=== PATIENT | female | born 1960 | race Caucasian/White ===

== ENCOUNTER → 2017-07-08 10:18 | Outpatient (CLI) | payer OTHER, SELFPAY ==
--- NOTE | 2017-07-08 10:29 | XR_ITS ---
XR ankle LT min 3V HISTORY: Left ankle pain ITS.REASON: LEFT ANKLE SPRAIN,INJURY ORDERING PHYSICIAN: Marie Durham PATIENT AGE: 57 years COMPARISON: FINDINGS: No fracture or dislocation. There is an area of cortical thinning involving the lateral aspect of the distal shaft of the tibia which shows decreased attenuation on the oblique view. This has the appearance of the lytic lesion. This could also be related to artifact from sparse trabeculation in this region. Suggest CT scan of this area to further evaluate. IMPRESSION: 1. No acute fracture. 2. Possible lytic lesion of the distal shaft of the tibia. Recommend CT scan for further evaluation
== END ==
PROVIDERS: PCP Nurse Practitioner Family; Visit Provider Nurse Practitioner Family
DX: S93.402A Sprain of unspecified ligament of left ankle, initial encounter (principal); S99.912A Unspecified injury of left ankle, initial encounter
CPT/HCPCS: 73610

== ENCOUNTER → 2017-07-25 13:53 | Outpatient (CLI) | payer OTHER, SELFPAY ==
--- NOTE | 2017-07-25 14:00 | CT_ITS ---
CT ankle LT wo con INDICATION: ITS.REASON: LYTIC LESION DISTAL TIBIA ORDERING PHYSICIAN: Marie Durham PATIENT AGE: 57 years COMPARISON: 07/08/2017 TECHNIQUE: Axial images are obtained without contrast. Sagittal and coronal reformatted images are reviewed as well. All CT scans at the facility use one or more dose reduction, viz: automated exposure control; ma/kV adjustment per patient size (including targeted exams where dose is matched to indication; i.e. head); or iterative reconstruction technique. FINDINGS: There is a well corticated deformity of the distal tibia diaphysis with broad-based concavity posteriorly. There is some cortical thinning posteriorly with some mild prominence of the trabecular bone posteriorly and laterally. No obvious associated soft tissue abnormality. This concavity simulates a destructive lesion by x-ray. IMPRESSION: Concave deformity of the distal tibia posteriorly with some cortical thinning and prominence of trabecular bone. This may be the result of an old fracture. No aggressive bony lytic lesion evident. 3 month radiographic follow-up recommended.
== END ==
PROVIDERS: Family Provider Nurse Practitioner Family; PCP Nurse Practitioner Family; Visit Provider Nurse Practitioner Family
DX: R93.6 Abnormal findings on diagnostic imaging of limbs (principal)
CPT/HCPCS: 73700

== ENCOUNTER → 2018-09-19 14:55 | Outpatient (CLI) | payer OTHER, SELFPAY ==
--- NOTE | 2018-09-19 15:16 | US_ITS ---
US thyroid HISTORY: ITS.REASON: THYROID NODULE ORDERING PHYSICIAN: Marie Durham APRN PATIENT AGE: 58 years Comparison: None FINDINGS: The right lobe is 3.7 x 1.5 x 2.7 cm. There is homogeneous echogenicity. A 1 cm cyst is present in the mid polar region of the right lobe. There is some minimal irregularity of the cyst wall. The left lobe is 3.2 x 1.1 x 1.5 cm. An isoechoic nodule present in the upper pole at 6 mm. In the mid polar region there is a 6 mm isoechoic nodule IMPRESSION: Bilateral thyroid nodules which appear benign. 6 month follow-up may confirm stability
== END ==
PROVIDERS: PCP Family Medicine; Visit Provider Nurse Practitioner Family
DX: E04.1 Nontoxic single thyroid nodule (principal)
CPT/HCPCS: 76536

== ENCOUNTER → 2019-04-03 11:28 | Outpatient (CLI) | payer OTHER, SELFPAY ==
--- NOTE | 2019-04-03 11:42 | XR_ITS ---
PROCEDURE: XR CERVICAL SPINE 5V CLINICAL INDICATION: CERVICALGIA COMPARISON: [facility] CT CERVICAL SPINE W/O CONT from 05/03/2015 FINDINGS: There is severe upper thoracic/lower cervical scoliosis convex right. Severe kyphosis also noted in the upper and lower cervical thoracic. This has been described on previous exams.. No obvious acute fracture or dislocation. Yoo rods remain in place in the upper thoracic spine and lower cervical spine. It is difficult to adequately evaluate the lower cervical spine. The upper cervical spine has an unremarkable appearance. IMPRESSION: Severe thoracocervical scoliosis and kyphosis with prior surgery. No definite acute fracture or other acute anomaly Dictated by: Macario Rodgers MD 04/03/2019 12:56 Electronically signed by Macario Rodgers MD in [place] 04/03/2019 12:56
== END ==
PROVIDERS: PCP Family Medicine; Visit Provider Nurse Practitioner Family
DX: M54.2 Cervicalgia (principal)
CPT/HCPCS: 72050

== ENCOUNTER → 2019-12-28 14:57 | Outpatient (CLI) | payer OTHER, SELFPAY ==
--- NOTE | 2019-12-28 15:01 | XR_ITS ---
PROCEDURE: XR KUB CLINICAL INDICATION: RT FLANK PAIN COMPARISON: CR KUB KUB (SINGLE VIEW) from 04/19/2015 FINDINGS: Bowel gas pattern is nonspecific. No evidence of intestinal obstruction. There is a faint calcific density in the mid pelvic region on the right at 1-2 mm and could represent a ureteral calculus or a vascular calcification. Faint left upper quadrant calcification noted and may be vascular. No acute bony findings. Sutures are present in the lower pelvic region. IMPRESSION: 2 mm right pelvic calcification which could be due to ureteral stone or a phleboliths. Dictated by: Macario Rodgers MD 12/28/2019 15:43 Macario Rodgers MD in [place] 12/28/2019 15:43
== END ==
PROVIDERS: PCP Nurse Practitioner Family; Visit Provider Nurse Practitioner Family
DX: R10.9 Unspecified abdominal pain (principal)
CPT/HCPCS: 74018

== ENCOUNTER → 2020-03-01 12:04 | Outpatient (CLI) | payer OTHER, SELFPAY ==
[2020-03-02 10:15] LABS: Covid-19 Nasal PCR Sendout P&C Negative
== END ==
PROVIDERS: PCP Family Medicine; Visit Provider Family Medicine
DX: Z03.818 Encounter for observation for suspected exposure to other biological agents ruled out (principal)
CPT/HCPCS: U0004

== ENCOUNTER → 2020-05-10 09:24 | Outpatient (CLI) | payer OTHER, SELFPAY ==
--- NOTE | 2020-05-10 09:32 | XR_ITS ---
PROCEDURE: XR SHOULDER RT MIN 2V CLINICAL INDICATION: ACUTE PAIN OF RT SHOULDER COMPARISON: CT TSPWO CT THORACIC SPINE W/O CONTRAST from 05/03/2015 FINDINGS: The clavicle is intact. There is mild narrowing of AC joint. The humeral head and glenoid appear normal. There is no subacromial stenosis. There are no soft tissue calcifications. A rather acute scoliotic angulation of the upper thoracic spine is again noted stabilized by fixation rods and brackets. IMPRESSION: No acute findings. Dictated by: Dr. Dexter Otero MD 05/10/2020 10:55 Dr. Dexter Otero MD in [place] 05/10/2020 10:55
== END ==
PROVIDERS: PCP Nurse Practitioner Family; Visit Provider Nurse Practitioner Family
DX: M25.511 Pain in right shoulder (principal)
CPT/HCPCS: 73030

== ENCOUNTER → 2020-07-12 09:43 | Outpatient (CLI) | payer OTHER, SELFPAY ==
--- NOTE | 2020-07-12 09:48 | XR_ITS ---
PROCEDURE: XR MULTIPLE SPINE 6+V CLINICAL INDICATION: LOW BACK PAIN,CERVICALGIA COMPARISON: No exams were available for comparison FINDINGS: Cervical spine: Severe kyphoscoliosis of visualized cervical and thoracic spine limits evaluation. Posterior spinal fixation rods of the upper thoracic spine is noted. The visualized cervical spine demonstrates normal alignment within the limitations of the study. Exaggeration of the cervical spine curvature. Multilevel facet joint arthropathy is noted. The C1-2 alignment is unremarkable. Soft tissue density is noted in the right lung apex, demonstrates no significant interval change compared to the CT of the thoracic spine dated May 03, 2015. Thoracolumbar spine: Posterior spinal fixation rods of the upper thoracic vertebral bodies. The visualized lumbar spine demonstrates no evidence of acute fractures or listhesis. Bone density is normal. Minor lower lumbar facet joint arthropathy. Paravertebral soft tissues are unremarkable. IMPRESSION: Severe kyphoscoliosis and posterior spinal fixation rods of the upper thoracic vertebral bodies. No other acute abnormality within the limitations of the study. Dictated by: Cheyenne Redd 07/12/2020 12:04 Cheyenne Redd in [place] 07/12/2020 12:04
--- NOTE | 2020-07-12 09:48 | XR_ITS ---
PROCEDURE: XR HIP RT 2-3V W/PELVIS CLINICAL INDICATION: FALL, RT HIP PAIN COMPARISON: No exams were available for comparison FINDINGS: No acute fractures or dislocations. Bone density is normal. Minor subchondral sclerosis of the right hip joint. No significant soft tissue abnormality is noted. IMPRESSION: No acute findings. Dictated by: Cheyenne Redd 07/12/2020 12:01 Cheyenne Redd in [place] 07/12/2020 12:01
--- NOTE | 2020-07-12 09:48 | XR_ITS ---
PROCEDURE: XR SHOULDER RT MIN 2V CLINICAL INDICATION: FALL,RT SHOULDER PAIN COMPARISON: CT CSWO CT CERVICAL SPINE W/O CONT from 05/03/2015 CR XR SHOULDER RT MIN 2V from 05/10/2020 FINDINGS: No acute fractures or dislocations. Bone density is normal. The acromioclavicular joint is within normal limits. No periarticular calcifications. No significant soft tissue abnormality. Miguelangel and screw fixation of the severely scoliotic upper thoracic spine. The visualized right hemithorax demonstrates minor soft tissue density at the right lung apex, demonstrate no significant interval change compared to prior CT scan of the cervical spine dated May 03, 2015. IMPRESSION: No acute abnormality. Dictated by: Cheyenne Redd 07/12/2020 11:42 Cheyenne Redd in [place] 07/12/2020 11:42
== END ==
PROVIDERS: PCP Nurse Practitioner Family; Visit Provider Nurse Practitioner Family
DX: M54.2 Cervicalgia (principal); M54.41 Lumbago with sciatica, right side; M25.511 Pain in right shoulder
CPT/HCPCS: 72084; 73030; 73502

== ENCOUNTER → 2020-07-21 10:39 | Outpatient (CLI) | payer OTHER, SELFPAY ==
--- NOTE | 2020-07-21 10:42 | MR_ITS ---
PROCEDURE INFORMATION: Exam: MR Right Lower Extremity Joint Without Contrast; Hip Exam date and time: 07/21/2020 10:42 AM Age: 60 years old Clinical indication: Pain; Hip; Right; Additional info: Injury due to fall. PT fell x2wks ago out of suv. RT hip pain and lt butt cheek pain. Hip pain when walking. Pain worse when laying or when sitting. Prior x-ray 07-12-20 TECHNIQUE: Imaging protocol: MR of the Right lower extremity joint without contrast. Exam focused on the hip. COMPARISON: CR XR HIP RT 2-3V W/PELVIS 07/12/2020 10:13 AM FINDINGS: Bones and cartilage: Right sacral insufficiency fracture. No osteonecrosis, other acute or healing fracture or other remarkable marrow signal alteration. Joint spaces: No significant hip joint effusion. Labrum: Unremarkable. No tear. TENDONS: Tendons of iliopsoas group: Unremarkable. No evidence of tear. Tendons of medial compartment of thigh: Unremarkable. No evidence of tear. Tendons of lateral rotators of hip: Unremarkable. No evidence of tear. Tendons of gluteal group: Unremarkable. No evidence of tear. Muscles: Muscles are normal. Soft tissues: Tendons are intact. Lymph nodes: No adenopathy. Intraperitoneal space: No free fluid in the pelvis. Other findings: No hemorrhage or hematoma. Neurovascular structures are unremarkable. IMPRESSION: Right sacral insufficiency fracture.
== END ==
PROVIDERS: PCP Nurse Practitioner Family; Visit Provider Nurse Practitioner Family
DX: M25.551 Pain in right hip (principal); M25.351 Other instability, right hip; W19.XXXA Unspecified fall, initial encounter
CPT/HCPCS: 73721

== ENCOUNTER → 2021-05-29 11:20 | Outpatient (CLI) | payer OTHER, SELFPAY | PROVIDERS: PCP Nurse Practitioner Family; Visit Provider Nurse Practitioner Family | DX: R00.0 Tachycardia, unspecified (principal) | CPT/HCPCS: 93225; 93226; 93270 ==

== ENCOUNTER → 2021-07-11 16:11 | Outpatient (CLI) | payer OTHER, SELFPAY ==
--- NOTE | 2021-07-11 16:17 | XR_ITS ---
PROCEDURE INFORMATION: Exam: XR Chest Exam date and time: 07/11/2021 4:23 PM Age: 61 years old Clinical indication: Cough and shortness of breath; Additional info: SOB TECHNIQUE: Imaging protocol: XR of the chest. Views: 2 views. COMPARISON: CR XR MULTIPLE SPINE 6+V 07/12/2020 10:13 AM FINDINGS: Lungs: There is a prominent right apical opacity. This is in a region where pleural thickening/fibrosis is common; however, findings are more prominent than are typically seen and appear significantly asymmetrically more prominent on the right. This appears stable since CT 07/12/2020, which favors benignity. Nevertheless, if CT of this lesion has never been performed, recommend follow-up nonemergent CT. Pleural spaces: No pneumothorax. Otherwise, as above. Heart/Mediastinum: Unremarkable. No cardiomegaly. Bones/joints: Cervicothoracic kyphoscoliosis with Yoo rods. Moderate spondylosis. IMPRESSION: There is a prominent right apical opacity. This is in a region where pleural thickening/fibrosis is common; however, findings are more prominent than are typically seen and appear significantly asymmetrically more prominent on the right. This appears stable since CT 07/12/2020, which favors benignity. Nevertheless, if CT of this lesion has never been performed, recommend follow-up nonemergent CT.
== END ==
PROVIDERS: PCP Nurse Practitioner Family; Visit Provider Nurse Practitioner Family
DX: R06.02 Shortness of breath (principal); R05.1 Acute cough
CPT/HCPCS: 71046; C9803; U0003; U0005

== ENCOUNTER → 2021-07-25 06:59 | Outpatient (CLI) | payer OTHER, SELFPAY ==
--- NOTE | 2021-07-25 07:06 | CT_ITS ---
FINAL REPORT TECHNIQUE: Thin section axial images were obtained from the lung apices through the upper abdomen without contrast. This study was performed with techniques to keep radiation doses as low as reasonably achievable (ALARA). Individualized dose reduction techniques using automated exposure control or adjustment of mA and/or kV according to the patient's size were employed. CLINICAL HISTORY: ABN CXR COMPARISON: 07/11/2021 FINDINGS: There is no mediastinal, hilar, or axillary lymphadenopathy. There is no pleural or pericardial effusion. Several less than 5 mm left lower lobe pulmonary nodules well seen on images 53 and 54, favor postinflammatory . There is a rounded soft tissue opacity in the right apex measuring 3 cm best seen on image 12. There is a subpleural right upper lobe nodule measuring 5 mm well seen on image 18. There is a 2nd, 6 mm right upper lobe nodule more medially also seen on image 18. Limited, unenhanced evaluation of the upper abdomen is without acute abnormality. There are spinal rods with severe scoliosis in the upper thoracic spine. IMPRESSION: Right apical mass. PET-CT is recommended. Bilateral subcentimeter pulmonary nodules, could be postinflammatory. Recommend short-term follow-up CT. Reviewed, Interpreted and Dictated by Lori Samuel MD Transcribed by Tierney Nava Authenticated by Lori Samuel MD on 07/25/2021 08:32:34 AM [facility]
== END ==
PROVIDERS: PCP Nurse Practitioner Family; Visit Provider Nurse Practitioner Family
DX: R93.89 Abnormal findings on diagnostic imaging of other specified body structures (principal)
CPT/HCPCS: 71250

== ENCOUNTER → 2022-04-05 15:58 | Outpatient (CLI) | payer OTHER, MEDICARE, SELFPAY ==
--- NOTE | 2022-04-05 16:07 | XR_ITS ---
PROCEDURE INFORMATION: Exam: XR Sacrum and Coccyx, 2 or More Views Exam date and time: 04/05/2022 4:19 PM Age: 62 years old Clinical indication: Injury or trauma; Fall; Blunt trauma (contusions or hematomas); Additional info: Injury due to fall 2 weeks ago in bath tub TECHNIQUE: Imaging protocol: XR of the sacrum and coccyx, 2 or more views. COMPARISON: 1. MR HIP RT WO CON 07/21/2020 10:56 AM 2. CR LS5 LUMBAR SPINE 5 VIEWS 04/12/2015 2:06 PM FINDINGS: Bones/joints: Sacrum is partially obscured by bowel gas on AP view. No acute fracture identified. Irregularity at the distal sacrum/coccyx is unchanged from prior. Bilateral hip joints are intact. Soft tissues: Normal. IMPRESSION: No acute abnormality. If continued clinical concern for acute abnormality, MR or CT could be obtained.
--- NOTE | 2022-04-05 16:07 | XR_ITS ---
PROCEDURE INFORMATION: Exam: XR Bilateral Sacroiliac Joints Exam date and time: 04/05/2022 4:19 PM Age: 62 years old Clinical indication: Injury or trauma; Fall; Blunt trauma (contusions or hematomas); Additional info: Injury due to fall 2 weeks ago in bath tub. TECHNIQUE: Imaging protocol: XR Bilateral XR of the sacroiliac joints. Views: 3 or more views. COMPARISON: 1. MR HIP RT WO CON 07/21/2020 10:56 AM 2. CR XR HIP RT 2-3V W/PELVIS 07/12/2020 10:13 AM FINDINGS: Bones/joints: No acute fracture identified. Bilateral hip joints are intact. Soft tissues: Normal. IMPRESSION: No acute abnormality.
--- NOTE | 2022-04-05 16:07 | XR_ITS ---
PROCEDURE INFORMATION: Exam: XR Lumbosacral Spine Exam date and time: 04/05/2022 4:19 PM Age: 62 years old Clinical indication: Injury or trauma; Fall; Blunt trauma (contusions or hematomas); Additional info: Injury due to fall in bath tub 2 weeks ago. TECHNIQUE: Imaging protocol: Radiologic exam of the lumbosacral spine. Views: 4 or 5 views. COMPARISON: CR XR MULTIPLE SPINE 6+V 07/12/2020 10:13 AM FINDINGS: Bones/joints: No acute fracture identified. Lower thoracic and lumbar vertebral body heights and alignment are maintained. Mild multilevel degenerative changes. Thoracic spinal rods are partially imaged. Soft tissues: Unremarkable. IMPRESSION: No acute abnormality.
== END ==
PROVIDERS: PCP Nurse Practitioner Family; Visit Provider Nurse Practitioner Family
DX: M54.50 Low back pain, unspecified (principal); M53.3 Sacrococcygeal disorders, not elsewhere classified; W19.XXXA Unspecified fall, initial encounter
CPT/HCPCS: 72110; 72202; 72220

== ENCOUNTER → 2022-08-07 09:54 | Outpatient (CLI) | payer OTHER, MEDICARE, SELFPAY ==
[2022-08-07 11:33] LABS: Alanine Aminotransferase 18 U/L (12-78); Albumin/Globulin Ratio 1.8 (1.1-1.8); Alkaline Phosphatase 98 U/L (38-126); Anion Gap 11.5 mEq/L (5-15); Aspartate Amino Transferase 26 U/L (14-36); Bilirubin,Total 0.2 mg/dl (0.2-1.3); Blood Urea Nitrogen 11 mg/dl (7-17); Calcium 9.9 mg/dl (8.4-10.2); Carbon Dioxide 32 mmol/L (22.0-30.0); Chloride 100 mmol/L (98-107); Estimated Glomerular Filt Rate 73 ml/min (>60); GFR (African American) 88 ML/MIN (>60); Globulin 2.2 g/dL (1.3-3.2); Glucose 94 mg/dl (74-100); Potassium 4.5 mmoL/L (3.5-5.1); Sodium 139 mmol/L (136-145); Total Protein,Serum 6.2 g/dl (6.3-8.2)
== END ==
PROVIDERS: PCP Family Medicine; Visit Provider Internal Medicine
DX: C49.A9 Gastrointestinal stromal tumor of other sites (principal); Q85.01 Neurofibromatosis, type 1
CPT/HCPCS: 36415; 80053

== ENCOUNTER → 2022-08-16 09:10 | Outpatient (CLI) | payer OTHER, MEDICARE, SELFPAY ==
--- NOTE | 2022-08-16 09:18 | MR_ITS ---
FINAL REPORT CLINICAL HISTORY: NEUROFIBROMATOSIS, TYPE 1. headache, dizziness and blurred vision COMPARISON: None FINDINGS: Multiplanar MR imaging of the brain was performed without and with contrast. There is motion on multiple sequences which slightly limits overall image quality. There is an artifact obscuring portions of the posterior fossa. There is no evidence of intracranial hemorrhage or mass. No abnormal extra-axial fluid collection is seen. The ventricular size is within normal limits. There is no evidence of shift of the midline structures. The posterior fossa and brainstem have an unremarkable appearance. No area of abnormal restricted diffusion is identified. No abnormal contrast enhancement is seen. Normal major vessel vascular flow voids are noted. IMPRESSION: No acute intracranial abnormality identified. Motion artifact, and artifact of uncertain etiology obscure a portion of the posterior fossa. Reviewed, Interpreted and Dictated by Eulogio Connell III, MD Transcribed by Loni Guzman Authenticated and [facility]
== END ==
PROVIDERS: PCP Nurse Practitioner Family; Visit Provider Internal Medicine
DX: Q85.01 Neurofibromatosis, type 1 (principal)
CPT/HCPCS: 70553; A9576

== ENCOUNTER 2023-07-26 11:14 | Outpatient (CLI) | payer OTHER, MEDICARE, SELFPAY ==
--- NOTE | 2023-07-26 | CA_ITS ---
APPROVED REPORT EXAM: Comprehensive 2D, Doppler, and color-flow Echocardiogram Conveyor Belt Repairer: Pily Delcid CRT Ht: 4 ft 7 in Wt: 113lbs BSA: 1.38 BP: 123/86 mmHg Indications: Chest Pain, Shortness of Breath, Fatigue, NF 2D Dimensions LA Volume 21.60 mL LA Volume Index 15.65 mL/m2 (M/F) 16-34 M-Mode Dimensions RVDd 2.84 cm (0.9-2.6) LA Diam 1.97 cm (1.9-4.0) LVDd 4.08 cm (3.5-5.7) LVDs 2.92 cm (3.5-5.7) IVSd 1.20 cm (0.6-1.1) PWd 0.60 cm (0.6-1.1) EF (Teich) 55.30% FS 28.40% EDV (Teich) 73.40 mL ESV (Teich) 32.80 mL LV Diastology MED A' 14.00 cm/s LAT A' 18.70 cm/s Aortic Valve AO Peak GR. 9.10 mmHg Pulmonary Valve PV Peak Velocity 162.0 (50-150 cm/s) Tricuspid Valve TR P. Velocity 275.00 cm/s RAP Estimate 10.00 mmHg RVSP 40.20 mmHg Left Ventricle The left ventricle is normal size. The left ventricular systolic function is normal. The left ventricular ejection fraction is within the normal range. Proximal septal thickening is noted. There is normal LV segmental wall motion. The left ventricular diastolic function is normal. LVEF is 55%. Right Ventricle The right ventricle is normal size. The right ventricular systolic function is normal. Atria Left atrium is mildly dilated. The right atrium size is normal. There is no Doppler evidence of interatrial shunt. Aortic Valve The aortic valve is mildly thickened. There is no aortic valvular stenosis. No aortic regurgitation is present. Mitral Valve Mitral valve leaflets are mildly thickened. No evidence of mitral valve stenosis. Mild to moderate mitral regurgitation. The MR jet is difficult to visualize. Tricuspid Valve The tricuspid valve leaflets are thin and pliable. Mild tricuspid regurgitation. RVSP is 20-25 mmHg. Pulmonic Valve The pulmonary valve is normal in structure. Trace pulmonic regurgitation. Great Vessels The aortic root is normal in size. The ascending aorta is not well-visualized. IVC is normal in size and collapses >50% with inspiration. Pericardium There is no pericardial effusion. Conclusion Normal biventricular systolic function. Mild LA dilation. Mild to moderate MR. Mild TR. RVSP 20-25 mmHg. Electronically signed by : Karla Weir MD 07/30/2023 13:40:59
--- NOTE | 2023-07-26 | CA_ITS ---
APPROVED REPORT Exam: Pharmacologic Technologist: Enriqueta Zelaya, Ht: 4 ft 7 in Wt: 113 lbs BSA: 1.38 m2 HR: 92 bpm BP: 173/97 mmHg Rhythm: NSR, LVH Indications: Dyspnea, CP, Fatigue Medical History Medications: Pregabalin,,,,, ONdansetron,,,,, CyclobenAPRINE,,,,, Desvenlafaxine,,,,, Imatinib,,,,, Stress Test Details Test: LEXISCAN HR Resting HR: 89 bpm Max Heart Rate (APMHR): 157 bpm Max HR Achieved: 103 bpm Target HR (85% APMHR): 133 bpm % of APMHR: 66 Recovery HR: 96 bpm BP Resting BP: 173/97 mmHg Max BP: 174/101 mmHg Recovery BP: 162.0/98.0 mmHg ECG Resting ECG: NSR, LVH Stress ECG: No significant ST changes Arrhythmia: None Clinical Exercise duration: 04:00 min Highest Stage Achieved: Exercise capacity: 1.0 METs Stress ECG Conclusion During lexiscan pt experinced leg and arm discomfort, and headache. No CP noted. No arrhythmias noted. No significant ST changes. Unremarkable lexiscan stress. Myoview images reported separately. Test Summary REST . . . . . . . Sitting REST 03:36 . . 89 . 173/ 97 . . Stage 1 01:00 . . 102 . . . . Stage 2 01:00 . . 99 . 159/ 93 . . Stage 3 01:00 . . 101 . 158/ 96 . . Stage 4 01:00 . . 98 . 162/ 97 . Stop exercise at 04:00 RECOVERY 01:00 . . 101 . . . . RECOVERY 02:00 . . 97 . 162/ 98 . . RECOVERY 03:00 . . 97 . 174/101 . . RECOVERY 03:40 . . 96 . 174/101 . . Electronically signed by : Karla Weir MD 07/30/2023 13:19:59
--- NOTE | 2023-07-26 11:15 | NM_ITS ---
APPROVED REPORT Exam: Nuclear Stress Test Indication: SOB, Fatigue, Family history Patient Location: Outpatient Stress Tech: Enriqueta SEALS Tech:MARICARMEN Myers RT(R)(N) Ht: 4 ft 7 in Wt: 113 lbs Bra Size: D HR: 89 bpm BP: 173/97 mmHg BSA: 1.38 m2 Rhythm: NSR TID: 1.01 BMI: 26.2 History: SOB, Fatigue, Family history Procedure: Patient received 0.4 mg of intravenous Lexiscan, resting heart rate 89 bpm, resting blood pressure 173/97 mmHg, with Lexiscan maximum heart rate achieved was 103 bpm which is % of the maximum predicted heart rate and blood pressure was 174/101 mmHg. With Lexiscan, patient denied any complaint of chest pain. Cardiac Stress and Resting SPECT Images: Cardiac Stress and Resting SPECT images were obtained using technetium 99m Myoview 31.8 mCi stress and 9.61 mCi at rest. Technically difficult study due to significant soft tissue overlap with the cardiac borders. This may affect the diagnostic interpretation of the study findings. Resting and stress imaging in supine positions demonstrate a medium sized, moderate, fixed perfusion defect in the distal anterior LV wall and the LV apex. This is no longer visualized with prone stress imaging. Findings are suggestive of soft tissue attenuation. Gated imaging demonstrates normal global and regional LV systolic function. LVEF is calculated at 63%. Conclusion: Technically difficult study due to significant soft tissue overlap with the cardiac borders. Soft tissue attenuation is present. No definite evidence of fixed or reversible perfusion defects. Gated imaging demonstrates normal global and regional LV systolic function. LVEF is calculated at 63%. In the setting of technically difficult study further evaluation with alternative imaging modality (i.e. CCTA) may be suggested, if clinically feasible. Electronically signed by : Karla Weir MD 07/30/2023 13:22:58
[2023-07-26] MEDS: REGADENOSON 0.4MG/5ML SYRINGE 0.400000000000000022 MG IV (13:29)
[2023-07-26] MEDS: ISOTOPE MYOVIEW (PER STUDY) 1 DOSE IV (13:29)
[2023-07-26] MEDS: SODIUM CHLORIDE 0.9% 10ML SYR (RAD ONLY) 10 ML IV ×2 (13:29)
== END 2023-07-26 23:59 | disposition home or self-care (01) ==
PROVIDERS: PCP Family Medicine; Visit Provider Physician Assistant
DX: R06.00 Dyspnea, unspecified (principal); R94.31 Abnormal electrocardiogram [ECG] [EKG]
CPT/HCPCS: 78452; 93017; 93018; 93306; A9502; J2785

== ENCOUNTER 2023-10-29 12:27 | Outpatient (CLI) | payer OTHER, MEDICARE, SELFPAY ==
[2023-10-29 12:54] LABS: Basophils # 0.1 K/mm3 (0-0.2); Basophils % 0.8 % (0.1-2.0); Eosinophils # 0.4 K/mm3 (0.0-0.4); Eosinophils % 5.2 % (0.1-12.0); Hematocrit 39.6 % (37.0-47.0); Hemoglobin 12.4 g/dL (12.2-16.2); Lymphocytes # 2.3 K/mm3 (0.7-4.5); Lymphocytes % 28.9 % (10-50); Mean Corpuscular HGB Conc 31.3 g/dL (31.8-35.4); Mean Corpuscular Hemoglobin 31.5 pg (27.0-31.2); Mean Corpuscular Volume 100.7 fl (81-99); Mean Platelet Volume 8.8 fl (7.4-10.4); Monocytes # 0.6 K/mm3 (0.1-1.0); Neutrophils # 4.7 K/mm3 (1.8-7.8); Neutrophils % 58.1 % (37.0-80.0); Platelet Count 370 K/mm3 (142-424); Red Blood Count 3.93 M/mm3 (4.20-5.40); Red Cell Distribution Width 14.4 % (11.5-17.5); White Blood Count 8.1 K/mm3 (4.8-10.8)
[2023-11-03 20:20] LABS: D001-IgE D pteronyssinus <0.10 kU/L (Class 0); D002-IgE D farinae <0.10 kU/L (Class 0); E001-IgE Cat Dander <0.10 kU/L (Class 0); E005-IgE Dog Dander 0.35 kU/L (Class I); E072-IgE Mouse Urine <0.10 kU/L (Class 0); G002-IgE Bermuda Grass <0.10 kU/L (Class 0); G006-IgE Timothy Grass <0.10 kU/L (Class 0); I006-IgE Cockroach, German <0.10 kU/L (Class 0); Immunoglobulin E, Total 29 IU/mL (6-495); M001-IgE Penicillium chrysogen <0.10 kU/L (Class 0); M002-IgE Cladosporium herbarum <0.10 kU/L (Class 0); M003-IgE Aspergillus fumigatus <0.10 kU/L (Class 0); M006-IgE Alternaria alternata <0.10 kU/L (Class 0); T001-IgE Maple/Box Elder <0.10 kU/L (Class 0); T003-IgE Common Silver Birch <0.10 kU/L (Class 0); T006-IgE Cedar, Mountain <0.10 kU/L (Class 0); T007-IgE Oak, White <0.10 kU/L (Class 0); T008-IgE Elm, American <0.10 kU/L (Class 0); T010-IgE Walnut <0.10 kU/L (Class 0); T011-IgE Maple Leaf Sycamore <0.10 kU/L (Class 0); T014-IgE Cottonwood <0.10 kU/L (Class 0); T015-IgE Ash, White <0.10 kU/L (Class 0); T022-IgE Pecan, Hickory <0.10 kU/L (Class 0); T070-IgE White Mulberry <0.10 kU/L (Class 0); W001-IgE Ragweed, Short <0.10 kU/L (Class 0); W011-IgE Thistle, Russian <0.10 kU/L (Class 0); W014-IgE Pigweed, Common <0.10 kU/L (Class 0); W018-IgE Sheep Sorrel <0.10 kU/L (Class 0)
== END 2023-10-29 23:59 | disposition home or self-care (01) ==
LOC: LAB 12:29
PROVIDERS: PCP Family Medicine; Visit Provider Internal Medicine Pulmonary Disease
DX: J45.909 Unspecified asthma, uncomplicated (principal); J30.9 Allergic rhinitis, unspecified
CPT/HCPCS: 36415; 82785; 85025; 86003

== ENCOUNTER 2023-11-18 09:46 | Outpatient (CLI) | payer OTHER, MEDICARE, SELFPAY ==
[2023-11-18 10:15] LABS: Basophils # 0.1 K/mm3 (0-0.2); Basophils % 0.7 % (0.1-2.0); Eosinophils # 0.5 K/mm3 (0.0-0.4); Eosinophils % 4.5 % (0.1-12.0); Hematocrit 44.1 % (37.0-47.0); Hemoglobin 13.5 g/dL (12.2-16.2); Lymphocytes # 2.1 K/mm3 (0.7-4.5); Lymphocytes % 19.2 % (10-50); Mean Corpuscular HGB Conc 30.7 g/dL (31.8-35.4); Mean Corpuscular Hemoglobin 31.4 pg (27.0-31.2); Mean Platelet Volume 8.6 fl (7.4-10.4); Monocytes # 0.9 K/mm3 (0.1-1.0); Monocytes % 8.2 % (1.7-9.3); Neutrophils # 7.3 K/mm3 (1.8-7.8); Neutrophils % 67.3 % (37.0-80.0); Platelet Count 396 K/mm3 (142-424); Red Blood Count 4.32 M/mm3 (4.20-5.40); Red Cell Distribution Width 14.3 % (11.5-17.5); White Blood Count 10.9 K/mm3 (4.8-10.8)
[2023-11-18 10:30] LABS: Alanine Aminotransferase 21 U/L (12-78); Albumin Level 4.2 g/dl (3.5-5.0); Alkaline Phosphatase 79 U/L (38-126); Anion Gap 6.8 mEq/L (5-15); Aspartate Amino Transferase 30 U/L (14-36); Bilirubin,Direct 0.2 mg/dl (0.0-0.4); Bilirubin,Indirect 0.3 mg/dL (0.0-0.9); Bilirubin,Total 0.5 mg/dl (0.2-1.3); Bilirubin,Unconjugated 0.2 mg/dL (0.0-1.1); Blood Urea Nitrogen 13 mg/dl (7-17); Calcium 10.3 mg/dl (8.4-10.2); Carbon Dioxide 32 mmol/L (22.0-30.0); Chloride 103 mmol/L (98-107); Chol/HDL Ratio 4.2 (1-3.5); Cholesterol 264 mg/dl (140-200); Estimated Glomerular Filt Rate 72 ml/min (>60); GFR (African American) 88 ML/MIN (>60); Glucose 98 mg/dl (74-100); HDL Cholesterol 63 mg/dl (40-60); Magnesium 1.8 mg/dl (1.6-2.3); Potassium 3.8 mmoL/L (3.5-5.1); Sodium 138 mmol/L (136-145); Total Protein,Serum 6.8 g/dl (6.3-8.2); Triglycerides 201 mg/dl (30-150); VLDL Cholesterol 40 mg/dL (0-40)
[2023-11-18 10:41] LABS: Direct LDL Cholesterol 151.11 mg/dL (100-129)
[2023-11-18 10:45] LABS: Free T4 (Free Thyroxine) 0.97 ng/dl (0.78-2.19)
[2023-11-18 11:02] LABS: Thyroid Stimulating Hormone 0.84 uIU/mL (0.465-4.68)
== END 2023-11-18 23:59 | disposition home or self-care (01) ==
LOC: LAB 10:26
PROVIDERS: PCP Family Medicine; Visit Provider Physician Assistant
DX: R00.2 Palpitations (principal); R06.09 Other forms of dyspnea; R93.1 Abnormal findings on diagnostic imaging of heart and coronary circulation; R07.89 Other chest pain; R53.83 Other fatigue
CPT/HCPCS: 36415; 80048; 80061; 80076; 83735; 84439; 84443; 85025

== ENCOUNTER 2023-12-06 07:31 | Outpatient (CLI) | payer OTHER, MEDICARE, SELFPAY ==
--- NOTE | 2023-12-06 07:31 | CT_ITS ---
APPROVED REPORT Avionics Safety Inspector: CLINICAL INDICATION Chest Pain TECHNIQUE Image Acquisition: A 128 slice MDCT scanner ([employer] View) was used for data acquisition. A noncontrast coronary calcium scan was performed. A CT attenuation threshold of 130 Hounsfield units (HU) was used for the detection of calcium in contiguous voxels of 1 sq mm in area to be counted as individual lesions. Bolus tracking in the ascending aorta with a threshold of 180 HU was performed. Immediately afterwards, ECG synchronized cardiac CT was then performed from the cardiac base to apex using retrospective gating with ECG tube current modulation. A total of 85 mL of Isovue 370 mg/mL contrast medium was administered at 5 mL/sec followed by a saline flush using a biphasic injection protocol. A tube voltage of 120 KVp was used. The patient received the following medications prior to the cardiac CT. 75 mg of oral metoprolol 15 mg of oral ivabradine The average heart rate at the time of acquisition was 44 bpm and regular. Image Reconstruction Transaxial images were reconstructed at 0.67 mm slide thickness. Data was reviewed interactively on an advanced workstation capable of 2 and 3-dimensional displays in all conventional reconstruction formats, including multiplanar reformations, maximum intensity projections, curved multiplanar reformations, and volume rendered reconstructions. When applicable, selected routine images describing the relevant coronary anatomy and pathology were saved and sent to PACS. Complications None Technical Quality Overall image quality was good. Coronary artery opacification was adequate. Total DLP (Dose-Length Product) is 1176.4 mGy-cm. The reported value represents the total of one or more individual components during the CT acquisition of this date and at this time, and as such, the same value may appear in more than one CT report depending on the interpreting/reporting physicians. COMPARISON None FINDINGS CT Coronary Calcium Scoring LMA (Left Main Artery) = 0 LAD (Left Anterior Descending) = 5 LCX (Left Coronary Circumflex) = 0 RCA (Right Coronary Artery) = 2 Total Calcium Score = 7 using the AJ-130 method. The observed calcium score of 7 is at 62nd percentile for subjects of the same age, sex, and race/ethnicity. The interpretation of the calcium heart score is based on the following continuum*: 0 = no calcified plaque detected (risk of coronary artery disease is very low ??? less than 5%) 1-10 = calcium detected in extremely minimal levels (risk of coronary diseases is still low ??? less than 10%) 11-100 = mild levels of plaque detected with certainty (mild or minimal narrowing of heart arteries is likely) 101-400 = definite,at least moderate levels of plaque detected (relatively high risk of a heart attack within 3-5 years) >401-999 = extensive levels of plaque detected (high risk of heart attack, high levels of vascular disease are present, high likelihood of at least one significant coronary narrowing) *The calcium heart score quantifies the burden of coronary calcification/plaque in the coronary arteries. The calcium heart score is not able to evaluate the presence or burden of non-calcified (i.e. soft) plaque. There is also calcification in the mitral annulus or mitral valve and the ascending and descending thoracic aorta. Coronary CT Angiography The coronary arterial system is right dominant. Quantitative Stenosis Grading: Left Main (LM): The left main originates normally from the left sinus of Valsalva. The LM bifurcates into the left anterior descending artery and left circumflex artery. The LM is patent with no evidence of atherosclerosis. Left Anterior Descending (LAD) and Diagonal Branches: The LAD gives off 2 diagonal branch(es). There is one focus of calcified plaque in the mid LAD segment, without luminal stenosis. There is no evidence of LAD-myocardial bridge. Left Circumflex (LCX) and Obtuse Marginals (OM): The LCX gives off 1 Obtuse Marginal (OM) branch(es). The LCX and its branches are patent with no evidence of atherosclerosis. Right Coronary Artery (RCA): The RCA originates normally from the right sinus of Valsalva. The RCA gives off a posterior descending artery (PDA) and posterolateral (PL) branches. There is 1 focus of calcified plaque in the proximal RCA segment, without luminal stenosis. Non-Coronary Cardiac Findings: Analysis of the left ventricular (LV) structure and function was performed after 3-D reconstruction of the LV from axial images, with user-corrected automatic contouring for assessment of LV volumes and user-defined reconstruction from oblique planes for measurement of 3-D cardiac structure and function. -The left ventricle systolic function is normal. -There is no left atrial appendage filling defect. Two right pulmonary veins and two left pulmonary veins drain normally into the left atrium. -No pericardial thickening or calcification. -Central and branch pulmonary arteries in the [id number] are unremarkable. -Thoracic aorta within the visualized thoracic aortic-branches in the [id number] is unremarkable. Extracardiac Structures No significant extra-cardiac findings. Note, however, that this study is focused on the cardiac findings. IMPRESSION -Presence of coronary calcification with an Agatston score = 7 using the AJ-130 method. -The observed calcium score of 7 is at 62nd percentile for subjects of the same age, sex, and race/ethnicity. -No evidence of significant flow-limiting atherosclerosis of the coronary arteries. -CAD-RADS 1. Management recommendations per ACC/AHA guidelines*, as clinically appropriate. *Recommendations: CAD RADS 0: Reassurance. Consider non-atherosclerotic causes of chest pain. CAD RADS 1: Consider non-atherosclerotic causes of chest pain. Consider preventive therapy and risk factor modification. CAD RADS 2: Consider non-atherosclerotic causes of chest pain. Consider preventive therapy and risk factor modification, particularly for patients with nonobstructive plaque in multiple segments. CAD RADS 3: Consider further functional testing. Consider symptom-guided anti-ischemic and preventive pharmacotherapy as well as risk factor modification per published guideline statements. CAD RADS 4A: Consider further functional testing or invasive coronary angiography with revascularization per published guideline statements. Consider symptom-guided anti-ischemic and preventive pharmacotherapy as well as risk factor modification per published guideline statements. CAD RADS 4B: Invasive coronary angiography recommended with revascularization per published guideline statements. Consider symptom-guided anti-ischemic and preventive pharmacotherapy as well as risk factor modification per published guideline statements. CAD RADS 5: Consider invasive angiography and/or viability assessment with revascularization per published guideline statements. Consider symptom-guided anti-ischemic and preventive pharmacotherapy as well as risk factor modification per published guideline statements. CRITICAL RESULT None COMMUNICATION Per this written report The coronary and cardiac findings of this CCTA were reviewed, reported, and signed by Bautista Weir MD (Mobile Lounge Driver Or Operator) Conclusion Electronically signed by : Karla Weir MD 12/09/2023 15:11:55
[2023-12-06 07:41] VITALS: BMI 25.1
[2023-12-06 07:42] VITALS: BP 118/71; PULSE 81; RESP 16; TEMP 36.6; O2SAT 98
[2023-12-06] MEDS: METOPROLOL TARTRATE 50MG TABLET PO (07:53)
[2023-12-06] MEDS: IVABRADINE HCL 7.5MG TABLET PO (07:55)
[2023-12-06] MEDS: METOPROLOL TARTRATE 25MG TABLET 25 MG (07:55)
[2023-12-06 08:26] VITALS: BP 136/88; PULSE 79; RESP 16; TEMP 36.1; O2SAT 100
[2023-12-06] MEDS: predniSONE 20MG TAB 50 MG PO (09:14)
[2023-12-06] MEDS: diphenhydrAMINE 50MG CAPSULE 50 MG PO (09:15)
[2023-12-06 09:20] VITALS: BP 110/65; PULSE 55; RESP 16; O2SAT 98
[2023-12-06 09:30] VITALS: BP 114/62; PULSE 50; RESP 16; O2SAT 98
[2023-12-06] MEDS: IOPAMIDOL-370 (76%);100ML BOTTLE 85 ML IV (09:33)
[2023-12-06] MEDS: 0.9 % SODIUM CHLORIDE 50 ML VIAL IV (09:33)
[2023-12-06] MEDS: SODIUM CHLORIDE 0.9% 10ML SYR (RAD ONLY) 10 ML IV (09:33)
[2023-12-06 09:35] VITALS: BP 113/63; PULSE 49; RESP 16; O2SAT 96
[2023-12-06 09:50] VITALS: BP 115/78; PULSE 49; RESP 16; O2SAT 96
== END 2023-12-06 09:50 | disposition home or self-care (01) ==
PROVIDERS: PCP Family Medicine; Visit Provider Physician Assistant
DX: R07.89 Other chest pain (principal); R93.1 Abnormal findings on diagnostic imaging of heart and coronary circulation
CPT/HCPCS: 75574; Q9967

== ENCOUNTER 2023-12-26 10:20 | Outpatient (CLI) | payer OTHER, MEDICARE, SELFPAY ==
--- NOTE | 2023-12-26 | XR_ITS ---
PROCEDURE INFORMATION: Exam: XR Chest Exam date and time: 12/26/2023 10:32 AM Age: 63 years old Clinical indication: Other: Chest pain; Additional info: Fell and hit chest Saturday. Lrom. TECHNIQUE: Imaging protocol: Radiologic exam of the chest. Views: 2 views. COMPARISON: CT CHEST ABDOMEN PELVIS W CONTRAST 09/16/2023 2:27 PM FINDINGS: Lungs: No evidence of pneumonia or interstitial edema. Pleural spaces: Unremarkable. No pleural effusion. No pneumothorax. Heart/Mediastinum: Unremarkable. No cardiomegaly. Bones/joints: Surgical hardware noted in the lower cervical upper thoracic spine. Mild buckling of the sternal body suspicious for underlying fracture. IMPRESSION: 1. No evidence of pneumonia or interstitial edema. 2. Mild buckling of the sternal body, suspicious for underlying fracture.
== END 2023-12-26 23:59 | disposition home or self-care (01) ==
PROVIDERS: PCP Nurse Practitioner; Visit Provider Nurse Practitioner
DX: R07.9 Chest pain, unspecified (principal)
CPT/HCPCS: 71046

== ENCOUNTER 2024-01-17 10:48 | Emergency (ER) | payer OTHER, MEDICARE, SELFPAY ==
[2024-01-17] VITALS (11 sets, daily range): BP systolic 117–152; BP diastolic 74–115; PULSE 102–113; RESP 15–18; TEMP 36.6–36.7; O2SAT 97–100; BMI 25.1
--- NOTE | 2024-01-17 10:54 | ED_ITS ---
Discharge Plan Disposition Patient Disposition: Home, Self-Care Condition: Good Prescriptions Prescriptions: New ondansetron 4 mg tablet,disintegrating 4 mg PO Q8H PRN (Reason: nausea and vomiting) 5 Days Qty: 10 0RF No Action fluticasone propion-salmeterol [Wixela Inhub] 250-50 mcg/dose blister with device 1 inh inhalation BID 90 Days Qty: 60 3RF fluticasone propionate [Flonase Allergy Relief] 50 mcg/actuation spray,suspension 2 spray intranasal DAILY 90 Days Qty: 16 2RF Rx Instructions: administer into each nostril atorvastatin 20 mg tablet 20 mg PO DAILY Qty: 30 2RF cyclobenzaprine 10 mg tablet 10 mg PO TID ondansetron HCl 4 mg tablet 4 mg PO Q6H pregabalin 50 mg capsule 50 mg PO DAILY imatinib 400 mg tablet 400 mg PO DAILY triamterene-hydrochlorothiazid 37.5-25 mg tablet 0.5 tab PO .three times weekly Qty: 30 2RF desvenlafaxine succinate 100 mg tablet extended release 24 hr 100 mg PO DAILY Patient Comments: TAKE 1 TABLET BY MOUTH ONCE DAILY metoprolol succinate [Toprol XL] 25 mg tablet extended release 24 hr 25 mg PO DAILY Qty: 90 3RF prednisone 50 mg tablet 50 mg PO DIRECTED Qty: 3 0RF Rx Instructions: 50 mg 13 hours prior to procedure 50mg 7 hours prior to procedure 50mg 1 hour prior to procedure Benadryl Allergy 50 mg tablet 50 mg PO DIRECTED Qty: 1 0RF Rx Instructions: Take one hour prior to procedure Referrals Follow up/Referrals: Claudette Mark APRN [Primary Care Provider] - See instructions Activity Restrictions/Add. Instructions Additional Instructions/Restrictions: I have prescribed Zofran to help with your nausea. Please continue to drink plenty of liquids. Please return with any new or worsening symptoms. Clinical Impressions Clinical Impression: Hypovolemia Instructions Patient Instructions: DI for Nausea -- Adult Print Language Print Language: Setswana Discharge ED Provider: Mega Adorno General Adult HPI General Chief complaint: Nausea/Vomiting/Diarrhea Stated complaint: nausea, weak, vomiting Time Seen by Provider: 01/17/24 10:54 History of Present Illness HPI narrative: The patient presents with a chief complaint of feeling progressively worse over the past week, with a history of nausea, vomiting, and constipation. She reports not having vomited since Saturday and has not had a bowel movement recently. She has been experiencing alternating hot and cold sensations, weakness, and increased nausea. The patient's family suspects dehydration as a possible cause. The patient has a history of a recent colonoscopy, which was reportedly more difficult than previous ones. She is unsure if any abnormalities were found during the procedure. The patient was able to pass gas this morning and bowel sounds were reportedly normal at a previous doctor's visit. The patient has not been able to take her regular medications, including a chemotherapy drug, due to the severity of her symptoms. She denies significant pain but acknowledges a high pain tolerance. The patient also mentions a recent small fracture and a fall on hardwood floors. The patient has had recent CT scans for oncology follow-up and a separate abdominal CT scan. She is scheduled to see her oncologist soon. Additionally, the patient reports only being able to tolerate water. Her family has been pushing food, but the patient has been too weak and nauseous to eat. The patient describes the past week as awful and mentions being typically strong but finding this week particularly difficult. She had a cold last week on Saturday. The patient's daughter took her to the doctor in the morning, who suggested coming to the emergency department. The patient mentions having had 3 or 4 colonoscopies in the past, with this recent one being particularly bad. Her was supposed to call the GI office on Saturday or Saturday but didn't. The patient reports passing gas in the public health informatician hours and mentions having a chemotherapy drug that typically makes her very sick with nausea and potential vomiting. Please note that above description of symptoms, in this electronic medical record under categorization of recalled from ER triage doctor by RN are reflective of an initial nursing assessment, however, is not reflective of my full history and physical exam that was personally taken and clarified. Consequentially, this preceding description of symptoms, which may include the patient's categorized chief complaint in the EMR, do not reflect my personal clinical impression, and the ultimate description of history of present illness and patient stated complaints should be deferred to this section of the note. Unless stated otherwise or congruent with this section of the note, additional signs, symptoms, or incongruence should be interpreted as inaccurate with my clinical impression. Related Data Home Medications ?Medication ?Instructions ?Recorded ?Confirmed cyclobenzaprine 10 mg tablet 10 mg PO TID 07/15/23 12/23/23 imatinib 400 mg tablet 400 mg PO DAILY 07/15/23 12/23/23 ondansetron HCl 4 mg tablet 4 mg PO Q6H 07/15/23 12/23/23 pregabalin 50 mg capsule 50 mg PO DAILY 07/15/23 12/23/23 desvenlafaxine succinate 100 mg 100 mg PO DAILY 11/18/23 12/23/23 tablet,extended release 24 hr Previous Rx's ?Medication ?Instructions ?Recorded triamterene 37.5 0.5 tab PO .three times weekly #30 08/14/23 mg-hydrochlorothiazide 25 mg tablet tabs fluticasone 250 mcg-salmeterol 50 1 inh inhalation BID 90 days #60 ea 10/29/23 mcg/dose blistr powdr for inhalation (Wixela Inhub) fluticasone propionate 50 2 spray intranasal DAILY 90 days 10/29/23 mcg/actuation nasal #16 grams spray,suspension (Flonase Allergy Relief) diphenhydramine HCl 50 mg tablet 50 mg PO DIRECTED #1 tab 11/18/23 (Benadryl Allergy) metoprolol succinate 25 mg 25 mg PO DAILY #90 tabs 11/18/23 tablet,extended release 24 hr (Toprol XL) prednisone 50 mg tablet 50 mg PO DIRECTED #3 tabs 11/18/23 atorvastatin 20 mg tablet 20 mg PO DAILY #30 tabs 12/23/23 ondansetron 4 mg disintegrating 4 mg PO Q8H PRN nausea and 01/17/24 tablet vomiting 5 days #10 tabs Allergies Allergy/AdvReac Type Severity Reaction Status Date / Time iodine Allergy Intermediate Hives Verified 12/23/23 09:24 amoxicillin (From Augmentin) Allergy Unknown Verified 01/17/24 11:03 allergy reaction clavulanic acid (From Allergy Unknown Verified 01/17/24 11:03 Augmentin) allergy reaction morphine AdvReac Unknown Vomiting Verified 12/23/23 09:24 [facility] Disclaimer: The information contained in this section may have been updated after the patient was seen, as this information can be updated by other users. Medical History (Updated 01/17/24 @ 13:42 by Mega Adorno MD) HLD (hyperlipidemia) Multiple lung nodules on CT Mass of right lung Asthma Allergic rhinitis Dyspnea on exertion Abnormal findings on diagnostic imaging of heart and coronary circulation Neurofibromatosis, type 1 GIST (gastrointestinal stroma tumor), malignant, colon Scoliosis Fatigue Chest pain Dyspnea Sinus tachycardia Rapid heart rate Cancer of gastrointestinal tract Surgical History History of thoracic surgery History of appendectomy Family History Other Cancer Diabetes Heart attack Hypertension Social History Smoking Status: Never smoker alcohol intake: current alcohol intake frequency: holidays/special occasions only substance use type: denies use current occupational status: previously employed Travel in the last 8 weeks: Inside the [place] Other Medical History Have you received the Flu Vaccine for this season: No Have you received the Pneumonia Vaccine: No ROS Obtained: Yes other As per HPI Physical Exam General General appearance: alert and in no apparent distress Head Head exam: atraumatic and normocephalic Eye Eye exam: Present normal appearance Neck Neck exam: Present normal inspection Chest Chest inspection: Present normal inspection and symmetric chest wall rise Respiratory Respiratory exam: Present normal lung sounds bilaterally; Absent respiratory distress Cardiovascular Cardiovascular exam: Present regular rate and normal rhythm Abdominal Exam Abdominal exam: Present soft Neurological Exam Neurological exam: Present alert and oriented X3 Psychiatric Psychiatric exam: Present normal affect and normal mood Skin Skin exam: Present warm and dry Medical Decision Making Medical Records Medical records reviewed: Yes I reviewed the patient's medical records. Screening: Per USPSTF and CDC recommendations, given the prevalence of disease in our region, it is our hospital?s policy to screen for HIV and viral Hepatitis for all patients aged 18 and over and those with ongoing risk factors. Mat Inquiry Pt receiving controlled substance: No Vital Signs: 01/17/24 10:49 01/17/24 11:00 01/17/24 11:15 Temperature 98.0 F Temperature Source Oral Pulse Rate 104 H 103 H Pulse Rate [Radial] 111 H Respiratory Rate 18 Blood Pressure 136/80 133/90 Blood Pressure [Right Arm] 130/80 Blood Pressure Mean Blood Pressure Mean [Right Arm] 96 Blood Pressure Source [Right Arm] Automatic Cuff Blood Pressure Position [Right Arm] Sitting 02 Sat by Pulse Oximetry 100 100 100 Oxygen Delivery Method Room Air 01/17/24 11:30 01/17/24 11:45 01/17/24 12:30 Temperature Temperature Source Pulse Rate 110 H 102 H 110 H Pulse Rate [Radial] Respiratory Rate Blood Pressure 117/79 121/92 H 139/82 Blood Pressure [Right Arm] Blood Pressure Mean 96 97 Blood Pressure Mean [Right Arm] Blood Pressure Source [Right Arm] Blood Pressure Position [Right Arm] 02 Sat by Pulse Oximetry 100 100 98 Oxygen Delivery Method Room Air 01/17/24 12:45 01/17/24 13:00 01/17/24 13:12 Temperature Temperature Source Pulse Rate 111 H 106 H 105 H Pulse Rate [Radial] Respiratory Rate Blood Pressure 132/74 136/85 140/91 H Blood Pressure [Right Arm] Blood Pressure Mean Blood Pressure Mean [Right Arm] Blood Pressure Source [Right Arm] Blood Pressure Position [Right Arm] 02 Sat by Pulse Oximetry 98 97 98 Oxygen Delivery Method Room Air Room Air Room Air 01/17/24 13:30 01/17/24 13:50 Temperature 98 F Temperature Source Pulse Rate 113 H 109 H Pulse Rate [Radial] Respiratory Rate 15 Blood Pressure 152/115 H 148/86 H Blood Pressure [Right Arm] Blood Pressure Mean Blood Pressure Mean [Right Arm] Blood Pressure Source [Right Arm] Blood Pressure Position [Right Arm] 02 Sat by Pulse Oximetry 100 Oxygen Delivery Method Room Air Room Air Lab Data Lab Results 01/17/24 11:10: WBC 11.1 H, RBC 4.71, Hgb 15.1, Hct 44.3, MCV 94.0, MCH 32.2 H, MCHC 34.2, RDW 13.8, Plt Count 381, MPV 7.4, Neut % (Auto) 70.1, Lymph % (Auto) 19.4, [place] % (Auto) 8.0, Eos % (Auto) 1.9, Baso % (Auto) 0.6, Neut # (Auto) 7.8, Lymph # (Auto) 2.2, [place] # (Auto) 0.9, Eos # (Auto) 0.2, Baso # (Auto) 0.1, Sodium 136, Potassium 3.9, Chloride 99, Carbon Dioxide 29, Anion Gap 11.9, BUN 25 H, Creatinine 0.80, Estimated Creat Clear 44, Estimated GFR 72, Est GFR ( Amer) 87, Glucose 122 H, Calcium 10.1, Magnesium 1.7, Total Bilirubin 0.6, AST 23, ALT 19, Alkaline Phosphatase 103, Total Protein 6.8, Albumin 4.2, Globulin 2.6, Albumin/Globulin Ratio 1.6, Lipase 22 L, HIV 1&2 Antibody Rapid Nonreactive 01/17/24 11:10 01/17/24 11:10 Orders (Tests/Meds): ED MEDICATIONS Discontinued Medications Generic Name Dose Route Start Last Admin Trade Name Freq PRN Reason Stop Dose Admin Lactated Ringer's 1,000 mls @ 999 mls/hr 01/17/24 11:37 01/17/24 11:41 Lactated Ringer's 1000 Ml Bag IV 01/17/24 12:37 999 mls/hr .Q1H1M ONE Administration Ondansetron HCl 4 mg 01/17/24 11:04 01/17/24 11:13 Ondansetron 4mg/2ml Vial IV 01/17/24 11:05 4 mg ONCE ONE Administration Sodium Chloride 10 ml 01/17/24 11:15 Sodium Chloride 0.9% 10ml Flush Syringe IV 02/16/24 11:14 NEEDED PRN Maintain IV Site ORDERS Category Date Time Status CT abdomen pelvis wo con Stat Cat Scan 01/17/24 11:53 Completed CBC w/Auto Diff [Complete Blood Count Auto Diff] Stat Lab 01/17/24 11:10 Completed CMP [Comprehensive Metabolic Panel] Stat Lab 01/17/24 11:10 Completed HIV (1&2) Antibody Rapid Stat Lab 01/17/24 11:10 Completed Hep C Ab with Reflex to RNA Stat Lab 01/17/24 11:10 Received Lipase Stat Lab 01/17/24 11:10 Completed MAG [Magnesium] Stat Lab 01/17/24 11:10 Completed Medical Decision Narrative: Patient with history and exam per above presenting for evaluation of nausea, decreased p.o. intake, concerns for dehydration Diagnoses considered include bowel obstruction, anesthesia reaction, hypovolemia, acute kidney injury, electrolyte abnormality, among others ED workup and treatment included: ED MEDICATIONS Discontinued Medications Generic Name Dose Route Start Last Admin Trade Name Freq PRN Reason Stop Dose Admin Lactated Ringer's 1,000 mls @ 999 mls/hr 01/17/24 11:37 01/17/24 11:41 Lactated Ringer's 1000 Ml Bag IV 01/17/24 12:37 999 mls/hr .Q1H1M ONE Administration Ondansetron HCl 4 mg 01/17/24 11:04 01/17/24 11:13 Ondansetron 4mg/2ml Vial IV 01/17/24 11:05 4 mg ONCE ONE Administration Sodium Chloride 10 ml 01/17/24 11:15 Sodium Chloride 0.9% 10ml Flush Syringe IV 02/16/24 11:14 NEEDED PRN Maintain IV Site ORDERS Category Date Time Status CT abdomen pelvis wo con Stat Cat Scan 01/17/24 11:53 Completed CBC w/Auto Diff [Complete Blood Count Auto Diff] Stat Lab 01/17/24 11:10 Completed CMP [Comprehensive Metabolic Panel] Stat Lab 01/17/24 11:10 Completed HIV (1&2) Antibody Rapid Stat Lab 01/17/24 11:10 Completed Hep C Ab with Reflex to RNA Stat Lab 01/17/24 11:10 Received Lipase Stat Lab 01/17/24 11:10 Completed MAG [Magnesium] Stat Lab 01/17/24 11:10 Completed Labs were independently interpreted by me, significant for white blood cell count 11.1, creatinine within normal limits, Imaging was independently visualized and interpreted by me, significant for no acute findings, with the exception of chronic finding of intra-abdominal mass which patient was aware of and was communicated to family and patient, which will be followed up on outpatient basis Please refer to radiology report for full details. I discussed my clinical impression with patient and answered all questions. At this time, the evidence for any other entities in the differential is insufficient to warrant any further testing or ED observation. This was explained to the patient. The patient was advised that persistent or worsening symptoms require further evaluation. Critical Care Critical Care Time Critical Care Time: No
[2024-01-17] MEDS: ONDANSETRON 4MG/2ML VIAL 4 MG IV (11:13)
[2024-01-17 11:23] LABS: Basophils # 0.1 K/mm3 (0-0.2); Basophils % 0.6 % (0.1-2.0); Eosinophils # 0.2 K/mm3 (0.0-0.4); Eosinophils % 1.9 % (0.1-12.0); Hematocrit 44.3 % (37.0-47.0); Hemoglobin 15.1 g/dL (12.2-16.2); Lymphocytes # 2.2 K/mm3 (0.7-4.5); Lymphocytes % 19.4 % (10-50); Mean Corpuscular HGB Conc 34.2 g/dL (31.8-35.4); Mean Corpuscular Hemoglobin 32.2 pg (27.0-31.2); Mean Platelet Volume 7.4 fl (7.4-10.4); Monocytes # 0.9 K/mm3 (0.1-1.0); Neutrophils # 7.8 K/mm3 (1.8-7.8); Neutrophils % 70.1 % (37.0-80.0); Platelet Count 381 K/mm3 (142-424); Red Blood Count 4.71 M/mm3 (4.20-5.40); Red Cell Distribution Width 13.8 % (11.5-17.5); White Blood Count 11.1 K/mm3 (4.8-10.8)
[2024-01-17 11:38] LABS: Albumin Level 4.2 g/dl (3.5-5.0); Chloride 99 mmol/L (98-107)
[2024-01-17 11:39] LABS: Potassium 3.9 mmoL/L (3.5-5.1); Sodium 136 mmol/L (136-145)
[2024-01-17 11:41] LABS: Alanine Aminotransferase 19 U/L (12-78); Anion Gap 11.9 mEq/L (5-15); Aspartate Amino Transferase 23 U/L (14-36); Bilirubin,Total 0.6 mg/dl (0.2-1.3); Blood Urea Nitrogen 25 mg/dl (7-17); Carbon Dioxide 29 mmol/L (22.0-30.0); Creatinine Clearance Estimated 44 mL/min (50-200); Estimated Glomerular Filt Rate 72 ml/min (>60); GFR (African American) 87 ML/MIN (>60)
[2024-01-17] MEDS: LACTATED RINGERS 1000ML 1,000 ML 999 ML IV (11:41)
[2024-01-17 11:42] LABS: Albumin/Globulin Ratio 1.6 (1.1-1.8); Alkaline Phosphatase 103 U/L (38-126); Calcium 10.1 mg/dl (8.4-10.2); Globulin 2.6 g/dL (1.3-3.2); Glucose 122 mg/dl (74-100); Lipase 22 U/L (23-300); Magnesium 1.7 mg/dl (1.6-2.3); Total Protein,Serum 6.8 g/dl (6.3-8.2)
--- NOTE | 2024-01-17 11:53 | CT_ITS ---
PROCEDURE INFORMATION: Exam: CT Abdomen And Pelvis Without Contrast Exam date and time: 01/17/2024 11:59 AM Age: 64 years old Clinical indication: Nausea and vomiting; Abdominal pain; Additional info: Recent colonoscopy/n/v abd pain TECHNIQUE: Imaging protocol: Computed tomography of the abdomen and pelvis without contrast. Radiation optimization: All CT scans at this facility use at least one of these dose optimization techniques: automated exposure control; mA and/or kV adjustment per patient size (includes targeted exams where dose is matched to clinical indication); or iterative reconstruction. COMPARISON: CT CHEST ABDOMEN PELVIS W CONTRAST 09/16/2023 2:27 PM FINDINGS: Lungs: Lung bases are clear. Liver: Normal. No mass. Gallbladder and biliary ducts: Normal. No calcified stones. No ductal dilation. Pancreas: Normal. No ductal dilation. Spleen: Normal. No splenomegaly. Adrenal glands: Normal. No mass. Kidneys and ureters: Normal. No hydronephrosis. Stomach and bowel: Unremarkable. No obstruction. No mucosal thickening. Appendix: No evidence of appendicitis. Intraperitoneal space: Unremarkable. No free air. No significant fluid collection. Vasculature: Scattered atherosclerotic changes of the abdominal aorta and iliac vessels. No aortic aneurysm. Lymph nodes: Unremarkable. No enlarged lymph nodes. Urinary bladder: Unremarkable as visualized. Reproductive: Re-demonstration of 6.0 x 5.0 cm lobulated heterogeneous solid mass left mid pelvis possibly ovarian in origin.. Uterus has been removed. Bones/joints: Unremarkable. No acute fracture. Soft tissues: Unremarkable. IMPRESSION: 1. 6.0 cm lobulated solid mass left mid pelvis probably neoplastic nature possibly ovarian in origin. Consider follow-up nonemergent pelvic ultrasound exam for further evaluation. 2. Prior hysterectomy.
[2024-01-17 14:40] LABS: HIV (1&2) Antibody Rapid NONREACTIVE (NONREACTIVE)
== END 2024-01-17 13:52 | disposition home or self-care (01) ==
PROVIDERS: Emergency Provider Emergency Medicine; PCP Nurse Practitioner
DX: E86.1 Hypovolemia (principal)
CPT/HCPCS: 74176; 80053; 83690; 83735; 85025; 87389; 96361; 96374; 99285; J2405; J7120

== ENCOUNTER 2024-02-03 08:28 | Outpatient (CLI) | payer OTHER, MEDICARE, SELFPAY ==
[2024-02-03 11:00] VITALS: PULSE 87; PULSE 90
[2024-02-03] MEDS: ALBUTEROL 0.083% 2.5 MG/3 ML NEB IH (11:00)
== END 2024-02-03 23:59 | disposition home or self-care (01) ==
LOC: RT 08:32
PROVIDERS: PCP Family Medicine; Visit Provider Internal Medicine Pulmonary Disease
DX: R06.09 Other forms of dyspnea (principal)
CPT/HCPCS: 94060; 94618; 94640; 94726; 94729; J7613

== ENCOUNTER 2024-04-01 10:23 | Outpatient (CLI) | payer OTHER, MEDICARE, SELFPAY ==
--- NOTE | 2024-04-01 10:35 | XR_ITS ---
FINAL REPORT CLINICAL HISTORY: pain, fall 1 month ago FINDINGS: THORACIC SPINE Two views were obtained. There is no acute fracture. There is posterior fusion in the upper thoracic spine. There is angulation of kyphosis in the upper thoracic spine. The disc spaces are well-preserved. There is no malalignment. IMPRESSION: No acute process. LUMBAR SPINE Five views were obtained. There is a 50% compression deformity of L1. The disc spaces are well-preserved. There is no malalignment. IMPRESSION: 50% compression deformity of L1. Reviewed, Interpreted and Dictated by Joe Dawn MD Transcribed by Tierney Nava Authenticated and [facility]
--- NOTE | 2024-04-01 10:35 | XR_ITS ---
FINAL REPORT CLINICAL HISTORY: PAIN FINDINGS: PELVIS One view was obtained. There is no fracture or dislocation. The femoral head demonstrates a normal smooth contour. The joint spaces appear normal. No soft tissue abnormality is identified. IMPRESSION: No acute process. Reviewed, Interpreted and Dictated by Joe Dawn MD Transcribed by Tierney Nava Authenticated and . [facility]
== END 2024-04-01 23:59 | disposition home or self-care (01) ==
LOC: RAD 10:28
PROVIDERS: PCP Nurse Practitioner; Visit Provider Nurse Practitioner
DX: M54.6 Pain in thoracic spine (principal); M54.50 Low back pain, unspecified; R10.2 Pelvic and perineal pain
CPT/HCPCS: 72084; 72170

== ENCOUNTER 2024-12-21 12:50 | Outpatient (CLI) | payer OTHER, MEDICARE, SELFPAY ==
--- OUTSIDE RECORDS SUMMARY | 2024-12-21 13:02 | XMS_ITS | Referral Summary ---
Author Organization [employer] ([place], [place], [place], [place]) Address [address] [place] [address] Care Team Providers Care Commercial Field Inspector Name Role Phone Clarke Cohen MD Primary Care Provider [phone] Encounters Date Type Department Care Team Description 12/18/2024 Refill [facility] - [place] [address] [place] [address] Deon Walker MD from Last 3 Months Allergies Active Allergy Reactions Criticality Noted Date Comments Amoxicillin-Pot Clavulanate 02/21/2022 Iodinated Contrast Media 02/21/2022 Cephalexin 02/21/2022 Morphine Nausea And Vomiting,Nausea Only Low 03/28/2006 Other reaction(s): Other, Unknown Sulfamethoxazole-Trimet hoprim Hives High 03/30/2017 Medications cyclobenzaprin e (FLEXERIL) 10 MG tablet Take 1 tablet (10 mg total) by mouth 3 (three) times daily as needed. 2 Active desvenlafaxine succinate (PRISTIQ) 100 MG 24 hr tablet Take 1 tablet (100 mg total) by mouth daily. 2 Active pregabalin (LYRICA) 50 MG capsule Take 1 capsule (50 mg total) by mouth 2 (two) times daily. 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 6 tablet 3 Active triamterene-hy droCHLOROthiaz janene (MAXZIDE-25) 37.5-25 mg per tablet Take 1 tablet by mouth daily. Active dexAMETHasone (DECADRON) 4 MG tablet Three tablets night before and three tablets morning of scan. May take with 25 mg benedryl. 6 tablet 4 Active metoprolol succinate (TOPROL-XL) 25 MG 24 hr tablet Take 1 tablet (25 mg total) by mouth daily. 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 6 tablet 5 Active fluticasone propion-salmet Burak (ADVAIR) 250-50 mcg/dose diskus inhalerIndicat ions:Gastroint estinal stromal tumor of small intestine (HCC) 2 (two) times daily. 4 Active fluticasone propionate (FLONASE) 50 mcg/actuation nasal sprayIndicatio ns:Gastrointes tinal stromal tumor of small intestine (HCC) 2 sprays. 4 Active imatinib (GLEEVEC) 400 MG tablet Take 1 tablet (400 mg total) by mouth daily. 90 tablet 5 Active imatinib (GLEEVEC) 400 MG tablet TAKE 1 TABLET BY MOUTH 1 TIME A DAY 90 tablet 5 12/19/19 25 Discontin ued(Reord er) Active Problems Patient Care Coordination No te Formatting of this note migh t be different from the original. Payor suggested condition code for provider consideration: ICD 10 Q8500 ICD Description Prostate, Breast, and Other Cancers and Tumors DOS 06/25/2023 Provider ELIGIO FRANCO Provider Actions- Review chart for above diagnosis If accurate diagnosis - Add condition to Problem List which adds it to the Visit Problem List, then daxa as reviewed to add to current Visit Diagnosis. If inaccurate diagnosis - No further action needed, will age off payor reports. 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 Social History Tobacco Use Types Packs/Day Years Used Date Smoking Tobacco: Never Smokeless Tobacco: Never Alcohol Use Standard Drinks/Week Comments Never 0 (1 standard drink = 0.6 oz pur e alcohol) Family and Community Support Answer Favian e Recorded Help with Day to Day Activities Not on file 03/15/2023 Feeling Lonely or Isolated Not on file 03/15 Educational Attainment Answer Date John rded Speak language other than Guatemalan at home Not on file 03/15/2023 Want help with school or training Not on file 03/15/2023 Substance Use Answer Date Recorded Used prescription meds for non-medical reasons N ot on file 03/15/2023 Used illegal drugs past 12 months Not on file 03/15/2023 Comments No Sex and Gender Information Value Date Recorded Sex Assigned at Not on file Legal Sex Female 6:57 PM CDT Gender Identity Not on file Sexual Orientation Not on file Occupation Industry Job Start Date Job End Date Disabled Not on file Not on file Not on file Last Filed Vital Signs Vital Sign Reading Time Taken Comments Blood Pressure 138/79 08/31/2024 10:46 AM EDT Pulse 109 08/31/2024 10:46 AM EDT Temperature 34.2 C (93.6 F) 08/31/2024 10:46 AM EDT Respiratory Rate 18 08/31/2024 10:4 6 AM EDT Oxygen Saturation 97% 08/31/2024 10: 46 AM EDT Inhaled Oxygen Concentration - - Weight 48.9 kg (107 lb 14.4 oz) 025 10:46 AM EDT Height 139.7 cm (4' 7 ) 08/31/2024 10:4 6 AM EDT Body Mass Index 25.08 08/31/2024 10:46 AM EDT Plan of Treatment Upcoming Encounters Date Type Department Care Team (Late st Contact Info) Description 01/25/2025 3:45 PM EST Appointment [address] [address] 02/15/2025 8:00 AM EST Appointment [facility] [address] [place] [address] Deon Walker MD [address] [place] [address] 02/15/2025 9:45 AM EST Office Visit [facility] [address] [place] [address] Deon Walker MD [address] [place] [address] Procedures Procedure Name Priority Date/Time Associated Diagnosis Comments MM DIGITAL MAMMO SCREEN WITH MELIA BILATERAL Routine 12/25/2022 8:48 AM EDT Screening mammogram for high-risk patient from Last 3 Months or Most Recently Relevant to Health Maintenance Results * MM digital mammo screen with melia bilateral (12/25/2022 8:48 AM EDT) Anatomical Region Laterality Modality Breast Bilateral Mammography 12/25/2022 10:4 9 AM EDT Impressions 12/25/2022 10:55 AM EDT FINAL IMPRESSION: ACR BI-RADS 1: Negative. RECOMMENDATIONS: Routine annual screening mammography. A letter including results and recommendations was sent to the patient. Density notification was provided to patients with type 3 or 4 breast tissue pattern. Patient information entered into a reminder system with a target due date for the next mammogram. At our facility, a santee sioux marker is positioned over a visible skin lesion and a linear marker is used to indicate a scar. A triangular marker is placed on a self reported palpable finding. Note: Mammography does not detect approximately 10-15% of breast cancers. An annual clinical breast exam by the patient's breast care physician and regular monthly self breast exams by the patient are integral parts of breast cancer screening, in addition to annual mammography. A normal mammogram does not completely exclude the presence of breast cancer, especially if there is an abnormal finding on physical exam. When clinically indicated, a biopsy should not be deferred because of a normal mammogram report. cc: Narrative 12/25/2022 10:55 AM EDT PROCEDURE: Bilateral digital screening mammogram with tomosynthesis. REASON FOR EXAM: Routine screening. FAMILY HISTORY: No family history of breast cancer. COMPARISON STUDY: [facility] FINDINGS: Craniocaudal and mediolateral oblique images of both breasts were obtained in 2D, C-view, and 3D modes. Bilateral 2-D XCCL views also performed. Positioning is limited due to the patient's kyphoscoliosis. The breast tissue is almost entirely fatty. There is no evidence of dominant mass, architectural distortion, or suspicious calcifications. No significant interval change. This examination was reviewed with the benefit of computer-aided detection (CAD). us Clarke Cohen MD IMG MAMMOGRAPHY ORDERABLES Irina amin Result from Last 3 Months or Most Recently Relevant to Health Maintenance Insurance MEDICARE PART A B [facility] Care Teams Commercial Field Inspector Relationship Specialty Start Date End Date Clarke Cohen MD [address] [place] [address] PCP - General Family Medicine 02/21/22
--- NOTE | 2024-12-21 13:04 | US_ITS ---
FINAL REPORT TECHNIQUE: Real-time grayscale and color ultrasound of the thyroid was performed. CLINICAL HISTORY: THYROID NODULE COMPARISON: 09/19/2018 FINDINGS: The thyroid gland measures 35 x 14 x 30 mm on the right and 25 x 9 x 14 mm on the left. The isthmus measures 2 mm. Nodules: Multinodular goiter again noted with multiple TR 3 nodules. Dominant mass in the mid right lobe measures up to 27 x 12 mm and previously measured approximately 21 x 15 mm. Other lesions are subcentimeter in size and not obviously changed. IMPRESSION: Mild interval enlargement of a dominant TR 3 nodule on the right, mixed cystic and solid. Benign etiology is likely given minimal interval growth. Twelve month follow-up recommended per TI-RADS criteria. Reviewed, Interpreted and Dictated by Nakul Mullen MD Transcribed by Noy Mancera Authenticated and [facility]
--- OUTSIDE RECORDS SUMMARY | 2024-12-21 13:04 | XMS_ITS ---
Author Organization [facility] Address [address] 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 HLD (hyperlipidemia) 12/30/2023 Macrocytosis without anemia 12/30/2023 Mass of right lung 12/30/[address] nodules [address] 12/30/2023 Palpitations 12/30/2023 Sinus tachycardia 12/30/2023 Oropharyngeal dysphagia 07/24/2023 Chronic bilateral thoracic back pain 09/21/2021 Anemia 01/24/2021 Overview (01/24/2021): secondary to GI bleed Bilateral fibrocystic breast changes 01/24/2021 Menopause 01/24/2021 Other secondary scoliosis, 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 Past Treatment and Therapy Plans No past plan information found. Lifetime Dose Tracking * Chemical Lifetime Dose Automatic Entry Manual Entr y Fluoro Time 1.6 minutes 1.6 minutes 0 minutes Air Kerma 3.5 mGy 3.5 mGy 0 mGy
--- OUTSIDE RECORDS SUMMARY | 2024-12-21 13:04 | XMS_ITS | Encounter Summary ---
Author Organization [employer] ([place], [place], [place], [place]) Address [address] [place] [address] Care Team Providers Care Marketing Planner Name Role Phone Clarke Cohen MD Primary Care Provider [phone] Reason for Visit * Reason Onset Date Comments Medication Refill 12/18/2024 Encounter Details Date Type Department Care Team (Late st Contact Info) Description 12/18/2024 Refill [facility] - [place] [address] [place] [address] Deon Walker MD [address] [place] [address] Social History Tobacco Use Types Packs/Day Years [...] Date John rded Speak language other than Kazakh at home Not on file 03/15/2023 Want [...] file Not on file Not on file documented as of this encounter Miscellaneous Notes * Telephone Encounter - Fabiola Munoz RN - 12/18/2024 10:17 AM EDT Prescription Refill Name/Strength/Directions: Imatinib 400 mg tablet, Take 1 tablet by mouth once daily. Quantity:90 tablets for 90 day supply Last Fill Date/Provider:08/28/24Dr. Walker Last Appt:08/31/24 Next Appt:02/15/25 Requested Pharmacy:[facility] Specialty Medication pended for MD to send. documented in this encounter Plan of Treatment Upcoming Encounters Date Type Department Care Team (Late st Contact Info) Description 01/25/2025 3:45 PM EST Appointment [facility] [address] [place] [address] 02/15/2025 8:00 AM EST Appointment [facility] Imaging [address] [place] [address] Deon Walker MD [address] [place] [address] [address] [place] [address] 02/15/2025 9:45 AM EST Office Visit [facility] - [address] [facility] [address] [place] [address] Deon Walker MD [address] [place] [address] [address] [place] [address] documented as of this encounter Visit Diagnoses Not on filedocumented in this encounter Care Teams Marketing Planner Relationship Specialty Start Date End Date Clarke Cohen MD [address] [place] [id number] PCP - General Family Medicine 02/21/22 documented as of this encounter
--- OUTSIDE RECORDS SUMMARY | 2024-12-21 13:04 | XMS_ITS | Encounter Summary ---
Author Organization [employer] ([place], [place], [place], [place]) Address [address] [place] [address] Care Team Providers Care Mud Car Worker Name Role Phone Clarke Cohen MD Primary Care Provider [phone] Encounter Details Date Type Department Care Team (Late st Contact Info) Description 08/28/2024 Outside [facility] Admitting [address] [place] [address] Clarke Cohen MD [address] [place] [address] Social History Tobacco Use Types Packs/Day Years [...] Date John rded Speak language other than Cymraes at home Not on file 03/15/2023 Want [...] on file documented as of this encounter Plan of Treatment Upcoming Encounters Date Type Department Care Team (Late st Contact Info) Description 01/25/2025 3:45 PM EST Appointment [facility] [address] [place] [address] 02/15/2025 8:00 AM EST Appointment [facility] CT Imaging [address] [place] [address] Deon Walker MD [address] [place] [address] [address] [place] [address] 02/15/2025 9:45 AM EST Office Visit [facility] - [place] [address] [place] [address] Deon Walker MD [address] [place] [address] [address] [place] [address] documented as of this encounter Visit Diagnoses Not on filedocumented in this encounter Care Teams Mud Car Worker Relationship Specialty Start Date End Date Clarke Cohen MD [address] [place] [address] PCP - General Family Medicine 02/21/22 documented as of this encounter
--- OUTSIDE RECORDS SUMMARY | 2024-12-21 13:04 | XMS_ITS | Clinical Summary ---
Author Organization [facility] Address [address] [place] [address] Care Team Providers Care Recreation Program Coordinator Name Role Phone Clarke Cohen MD Primary Care Provider [phone] Allergies Active Allergy Reactions Criticality Noted Date Comments Amoxicillin-Pot Clavulanate Unknown - Patient states they do not know rxn details Low 05/13/2015 Cephalexin Unknown - Patient states they do not know rxn details Low 05/13/2015 Patient doesn't remember reaction type Iodinated Contrast Media Other - please document in the comment field Low 09/29/2009 Iodine Hives High 12/23/2023 Iv Contrast Anaphylaxis High 09/29/2009 Morphine Nausea,Nausea And Vomiting,Other - please document in the comment field,Unknown - Patient states they do not know rxn details Low 03/28/2006 Other reaction(s): Other, Unknown Other Anaphylaxis High 09/29/2009 Penicillins Itching,Unknown - Patient states they do not know rxn details Medium 05/13/2015 Shellfish Allergy Unknown - Patient states they do not know rxn details Low 09/29/2009 Sulfamethoxazole-Trime thoprim Hives High 03/30/2017 Medications Cyanocobalamin ER 1000 MCG tablet controlled-release TAKE 1 TABLET DAILY DIRECTED. 9 Active desvenlafaxine (Pristiq) 100 MG 24 hr tablet 1 Active dexamethasone (Decadron) 4 MG tablet 1 Active imatinib (Gleevec) 400 MG chemo tablet 12/22/19 2 1 Active sucralfate (Carafate) 1 g tablet Carafate 1 gram tablet Take 1 tablet before meals and at bedtime Active tobramycin (Tobrex) 0.3 % ophthalmic solution 1 Active promethazine-dextro methorphan (Phenergan-DM) 6.25-15 MG/5ML syrup TAKE 5 ML BY MOUTH EVERY 6 HOURS NEEDED 2 Active famotidine (Pepcid) 20 MG tablet Take 1 tablet (20 mg) by mouth. prn 3 Active promethazine (Phenergan) 12.5 MG tablet Take 1 tablet (12.5 mg) by mouth every 6 (six) hours if needed. prn 3 Active fluticasone-salmete rol (Advair Diskus) 250-50 MCG/ACT diskus inhaler 2 (two) times a day. 4 Active fluticasone (Flonase) 50 MCG/ACT nasal spray 2 sprays. 10/29/19 2 4 Active metoprolol succinate XL (Toprol-XL) 25 MG 24 hr tablet 1 tablet (25 mg). 4 Active triamterene-hydroch lorothiazide (Maxzide-25) 37.5-25 MG tablet 0.5 tablets. 4 Active atorvastatin (Lipitor) 20 MG tablet 1 tablet (20 mg). 4 Active cyclobenzaprine (Flexeril) 10 MG tabletIndications:O ther secondary scoliosis, cervicothoracic region Take 1 tablet by mouth 3 times a day as needed for muscle spasms. 90 tablet 11 5 Active pregabalin (Lyrica) 50 MG capsuleIndications: Other secondary scoliosis, cervicothoracic region Take 1 capsule by mouth 2 times a day. 60 capsule 5 5 Active Active Problems Problem Noted Date Diagnosed Date [...] (06/25/2023): From Automated Load;Provider: Geronimo Skaggs;Status: Active Immunizations Immunization Administration Dates Next Due Influenza, injectable, quadrivalent, preservativ e free 12/09/2019,12/27/2016 Influenza, seasonal, injectable 12/05/2020 Influenza, seasonal, injectable, preservative fr ee 02/11/2016 Family History Medical History Relation Name Comments Diabetes Father Heart disease Father Cancer Mother Relation Name Status Comments Father Mother Social History Tobacco Use Types Packs/Day Years Used Date Smoking Tobacco: Never Smokeless Tobacco: Never Tobacco Cessation:Counseling Given: Not Answered Alcohol Use Standard Drinks/Week Comments Never 0 (1 standard drink = 0.6 oz pur e alcohol) PHQ-2 Answer Date Recorded Patient Health Questionnaire-2 Score 0 07/28/2024 Comments No Sex and Gender Information Value Date Recorded Sex Assigned at Not on file Legal Sex Female 8:37 PM EDT Gender Identity Not on file Sexual Orientation Not on file Last Filed Vital Signs Vital Sign Reading Time Taken Comments Blood Pressure 123/71 07/28/2024 1:22 PM EDT Pulse 97 07/28/2024 1:22 PM EDT Temperature - - Respiratory Rate 18 12/30/2023 11:14 AM EDT Oxygen Saturation 98% 12/30/2023 11:14 AM EDT Inhaled Oxygen Concentration - - Weight 48.6 kg (107 lb 2.3 oz) 07/28/2024 1:22 P M EDT Height 139.7 cm (4' 7 ) 07/28/2024 1:22 PM EDT Body Mass Index 24.9 07/28/2024 1:22 PM EDT Plan of Treatment Upcoming Encounters Date Type Department Care Team (Late st Contact Info) Description 02/09/2025 10:00 AM EST Office Visit [facility] Neurology [address] [place] [address] Vania Melgar MD [address] [place] [address] Health Maintenance Due Date Last Done Comments [facility]-HIV Screening 1960 [facility]-Hepatitis C Screening 1960 [facility]-Medicare Annual Wellness (AWV) 1960 [facility]-/Child/Adol SDOH Screenings 1960 [facility]- SDOH Screenings 01/16/1978 [facility]-Adult SDOH Screenings 01/16/1978 [facility]-DTaP,Tdap,and Td Vaccines (1 - Tdap) 01/16/1979 [facility]-Pneumococcal Vaccine: 50+ Years (1 of 2 - PCV) 01/16/1979 [facility]-Zoster Vaccines (1 of 2) 01/16/1979 [facility]-Pap Smear 01/16/1981 [facility]-Cervical Cancer Screening 01/16/1990 [facility]-HPV/Cotest 01/16/1990 CT Colonography 01/16/2005 Colonoscopy 01/16/2005 FIT-DNA 01/16/2005 FIT 01/16/2005 FOBT 01/16/2005 Sigmoidoscopy 01/16/2005 [facility]-Colorectal Cancer Screening 01/16/2005 [facility]-RSV Vaccine: 60+ Years or (1 - Risk 60-74 years 1-dose series) 2020 BEE-SYHKA-19 Vaccine (2024- season) 2024 02/02/2021, 06/09/2020, 05/12/2020 [facility]-Influenza Vaccine (#1) 11/02/202412/05, 12/09/2019, 12/27/2016, Additional history exists [facility]-Breast Cancer Screening 12/25/202412/03, 12/25/2022, 11/15/2021, Additional history exists [facility]-Depression Screening 07/28/2025 07/28/2024, 12/04 HPV Vaccines Aged Out No longer eligi ble based on patient's age to complete this topic [facility]-HIB Vaccines Aged Out No longer e ligible based on patient's age to complete this topic [facility]-Hepatitis A Vaccines Aged Out No longer eligible based on patient's age to complete this topic [facility]-IPV Vaccines Aged Out No longer e ligible based on patient's age to complete this topic [facility]-Rotavirus Vaccines Aged Out No lo nger eligible based on patient's age to complete this topic Insurance [facility] MEDICARE Care Teams Recreation Program Coordinator Relationship Specialty Start Date End Date Clarke Cohen MD [address] [place] [address] [address] [place] [address] PCP - General 07/15/20
--- OUTSIDE RECORDS SUMMARY | 2024-12-21 13:05 | XMS_ITS | Clinical Summary ---
Author Organization [facility] Address [address] [place] [address] Care Team Providers Care Group President Name Role Phone Clarke Cohen MD Primary Care Provider [phone] Allergies Active Allergy Reactions Criticality Noted Date Comments Amoxicillin-Pot Clavulanate Unknown (See Comments) Low 05/13/2015 Contrast Dye (Echo Or Unknown Ct/Mr) Anaphylaxis High 09/29/2009 Cephalexin Unknown (See Comments) Low 05/28/2017 Patient doesn't remember reaction type Morphine Nausea And Vomiting,Nausea Only,Other (See Comments),Unknown (See Comments) Low 03/28/2006 Other Anaphylaxis High 09/29/2009 Penicillins Itching,Unknown (See Comments) Medium 05/13/2015 Sulfamethoxazole-Trime thoprim Hives Medium 03/30/2017 Medications cyclobenzaprine (FLEXERIL) 10 MG tablet Take 10 mg by mouth 3 (Three) Times a Day As Needed for Muscle Spasms. Active desvenlafaxine (PRISTIQ) 100 MG 24 hr tablet Take 1 tablet by mouth Daily. 04/15/2017 Active imatinib (GLEEVEC) 400 MG chemo tablet imatinib 400 mg tablet Take 1 tablet every day by oral route. Active pregabalin (LYRICA) 50 MG capsule Take 50 mg by mouth 2 (Two) Times a Day. 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 Malignant neoplastic disease 11/09/2014 Vaginal atrophy Scoliosis Neurofibromatosis Menopause Bilateral fibrocystic breast changes Anemia Overview (05/23/2016): secondary to GI bleed Family History Medical History Relation Name Comments Lung cancer Brother Liver cancer Father Other Father gall bladder ca ncer Heart disease Maternal Grandfather Heart disease Maternal Grandmother No Known Problems Mother Relation Name Status Comments Brother Father Alive Maternal Grandfather Maternal Grandmother Mother Social History Tobacco Use Types Packs/Day Years Used Date Smoking Tobacco: Never Smokeless Tobacco: Never Alcohol Use Standard Drinks/Week Comments Yes 0 (1 standard drink = 0.6 oz pur e alcohol) rarely Abuse Screen Answer Date Recorded Unsafe at Home or Work/School Not on file Feels Threatened by Someone? Not on file 11/2022 Does Anyone Keep You from Co ntacting Others or Doint Things Outside the Home? Not on file 12/10/2022 Physical Sign of Abuse Present Not on file 1 Housing Stability Answer Date Recorded Current Living Arrangements Not on file 11/2022 Potentially Unsafe Housing Conditions Not on charlotte e 12/10/2022 Family and Community Support Answer Favian e Recorded Help with Day-to-Day Activities Not on file 12/10/2022 Lonely or Isolated Not on file 12/10/2022 Employment Answer Date Recorded Do you want help finding or keeping work or a feng b? Not on file 12/10/2022 Disabilities Answer Date Recorded Concentrating, Remembering, or Making Decisions Difficulty Not on file 12/10/2022 Doing Errands Independently Difficulty Not on fi le 12/10/2022 Education Answer Date Recorded Help with school or training? Not on file Preferred Language Not on file 12/10/2022 Comments No Sex and Gender Information Value Date Recorded Sex Assigned at Not on file Legal Sex Female 10:21 AM EDT Gender Identity Not on file Sexual Orientation Not on file Last Filed Vital Signs Vital Sign Reading Time Taken Comments Blood Pressure 124/82 10/26/2021 9:12 AM EDT Pulse 116 06/05/2018 5:02 PM EDT Temperature 36.5 C (97.7 F) 10/21/2019 10:01 AM EDT Respiratory Rate 16 10/26/2021 9:12 AM EDT Oxygen Saturation 97% 06/05/2018 5:02 PM EDT Inhaled Oxygen Concentration - - Weight 51.4 kg (113 lb 6.4 oz) 10/26/2021 9:12 A M EDT Height 151.1 cm (4' 11.5 ) 10/25/2020 9:05 AM ED T Body Mass Index 22.52 10/25/2020 9:05 AM EDT Plan of Treatment Health Maintenance Due Date Last Done Comments TDAP/TD VACCINES (1 - Tdap) 01/16/1979 COLOGUARD 01/16/2005 COLON CANCER SCREENING 5 YEA R SIGMOIDOSCOPY 01/16/2005 COLONOSCOPY 01/16/2005 COLORECTAL CANCER SCREENING 01/16/2005 CT COLONOGRAPHY 01/16/2005 FECAL OCCULT BLOOD TEST 01/16/2005 FIT Testing (1 year) 01/16/2005 Pneumococcal Vaccine 50+ (1 of 1 - PCV) 01/16/2010 ZOSTER VACCINE (1 of 2) 01/16/2010 ANNUAL PHYSICAL 04/24/2016 HEPATITIS C SCREENING 04/24/2016 Annual Gynecologic Pelvic an d Breast Exam 06/21/2019 06/19/2018, 05/28/2017, 05/23/2016 MAMMOGRAM 11/14/2022 11/14/2020, 04/0 05/2018, 06/01/2016, Additional history exists INFLUENZA VACCINE 10/02/2024 12/05/2020, , 12/27/2016, Additional history exists PAP SMEAR 10/26/2024 10/26/2021, 06/02, 05/28/2017, Additional history exists Procedures Procedure Name Priority Date/Time Associated Diagnosis Comments LIQUID-BASED PAP SMEAR, [facility] ([place]) Routine 10/26/2021 9:50 AM EDT Encounter for gynecological examination with abnormal finding SCANNED - MAMMO 11/14/2020 SCANNED - PAP SMEAR 06/19/2018 from Last 3 Months or Most Recently Relevant to Health Maintenance Results * LIQUID-BASED PAP SMEAR, [facility] ([place]) (10/26/2021 9:50 AM EDT) Reference Lab Report [facility] [address] [place] [address] or [phone] Guero Ortega M.D., [place] PATIENT NAME LABORATORY [address] [id number] AGE SEX SSN CLIENT REF # [id number] 61 [id number] F [id number] [facility], [address] REQUESTING [place]. ATTENDING M.D. COPY TO[address] DATE COLLECTED DATE RECEIVED DATE REPORTED 10/26/2021 10/26/2021 10/30/2021 ThinPrep Pap with Cytyc Imaging DIAGNOSIS: Negative for intraepithelial lesion or malignancy Multiple factors can influence accuracy of Pap tests; therefore, screening at regular intervals is necessary for early cancer detection. Professional interpretation rendered by Guero Ortega M.D., F.C.A.P. at [facility] [employer], [address] [place] [address]. RECOMMENDATION: Follow up as clinically appropriate SPECIMEN ADEQUACY: Transformation zone is absent or insufficient. Data is conflicting on the significance of ECC/TZ elements, an annual repeat Pap smear is suggested. Partially obscuring blood and inflammation are present. Sparse cellularity, minimal number of squamous cells available for evaluation. SOURCE OF SPECIMEN: CERVICAL/ENDOCERVI DAVID SLIDES: 1 CLINICAL HISTORY: Encounter for gynecological examination with abnormal finding Post Menopausal HPV HR-HPV POOL: Negative The Aptima HPV assay is an in vitro nucleic acid amplification test for the qualitative detection of E6/E7 viral messenger RNA from 14 high risk types of HPV in cervical specimens. The high risk HPV types detected include: 16, 18, 31, 33, 35, 39, 45, 51, 52, 56, 58, 59, 66, 68 RUG FRAME MOUNTER: JAIMIE TEIXEIRA (ASCP) REVIEWED, DIAGNOSED AND ELECTRONICALLY SIGNED BY: Guero Ortega M.D., F.C.A.P. CPT CODES: [id number], [id number], [id number] 10/30/2021 4:48 PM EDT [facility] ThinPrep Vial Cervix uteri structure / Unknown Collection / Unknown 10/26/2021 9:50 AM EDT 10/26/2021 9:50 AM EDT Diamond Florez APRN PATHOLOGY/CYTOLOGY ORD ERABLES Final Result [facility]
[address] [place] [address], * SCANNED - MAMMO (11/14/2020) Anatomical Region Laterality Modality Other Hussain Smith MD CHART REVIEW TABS Irina l Result * SCANNED - PAP SMEAR (06/19/2018) Hussain Smith MD CHART REVIEW TABS Irina l Result from Last 3 Months or Most Recently Relevant to Health Maintenance Insurance [place] [address] [employer] Care Teams Group President Relationship Specialty Start Date End Date Clarke Cohen MD [address] [place] [address] PCP - General Family Medicine 05/23/16
== END 2024-12-21 23:59 | disposition home or self-care (01) ==
LOC: RAD 12:51
PROVIDERS: PCP Nurse Practitioner; Visit Provider Nurse Practitioner
DX: E04.1 Nontoxic single thyroid nodule (principal)
CPT/HCPCS: 76536

== ENCOUNTER 2025-02-11 12:49 | Outpatient (CLI) | payer OTHER, MEDICARE, SELFPAY ==
[2025-02-11] MEDS: ALBUTEROL 0.083% 2.5 MG/3 ML NEB IH (13:47)
--- NOTE | 2025-02-11 15:20 | XR_ITS ---
FINAL REPORT TECHNIQUE: Chest PA & Lateral CLINICAL HISTORY: sob COMPARISON: 12/26/2023 FINDINGS: 2 views of the chest were performed. The heart size is normal. The mediastinum is within normal limits. The lungs are underinflated. Chronic scarring is noted in the upper lobes. There is no acute cardiopulmonary process. There are no pleural effusions. There is no pneumothorax. Scoliosis convex to the right is noted. There is fusion hardware bridging the thoracic scoliosis. IMPRESSION: No acute cardiopulmonary process. Reviewed, Interpreted and Dictated by Joe Dawn MD Transcribed by Noy Mancera Authenticated and [facility]
== END 2025-02-11 23:59 | disposition home or self-care (01) ==
PROVIDERS: PCP Nurse Practitioner; Visit Provider Internal Medicine Pulmonary Disease
DX: R06.02 Shortness of breath (principal)
CPT/HCPCS: 71046; 94010; 94618